=== PATIENT | female | born 1950 | race Asian ===

== ENCOUNTER 2021-09-13 20:34 | Emergency (ER) | payer OTHER ==
[~2021-09-13] VITALS: Ht 149.9 cm; Wt 44.5 kg
[2021-09-13 20:52] VITALS: BP 140/77
--- NOTE | 2021-09-13 21:01 | NUR ---
PT AMBULATED TO ER BED 06
--- NOTE | 2021-09-13 21:31 | NUR ---
71 YO/F BIB SELF W C/O R SIDED ABDOMINAL PAIN AND FLANK PAIN 10/10 BEGINNING THIS MORNING, CONSTANT, SHARP. +CHRONIC BACK PAIN. PT DENIES ANY URINARY BURNING, FREQUENCY, RETENTION OR OTHER SYMPTOMS. DENIES FEVERS, N/V/D, OR CONSTIPATION. PT DENIES TAKING ANYTHING FOR PAIN. BOWEL SOUNDS PRESENT, ABDOMEN SOFT AND TENDER ON R SIDE. PT AMBULATES W CANE PER BASELINE. PT PLACED IN GOWN, PT LAYING IN BED LOCKED IN LOWEST POSITION W X2 SIDERAILS UP FOR PT SAFETY. BREATHING EVEN AND UNLABORED. VSS. NAD NOTED, WILL CONTINUE TO MONITOR. PMH: ULCERS, CHRONIC BACK PAIN ALLERGIES: PENICILLINS, ACETAMINOPHEN, CODEINE
--- NOTE | 2021-09-13 21:32 | NUR ---
Dr. Klein examining patient.
[2021-09-13] MEDS ORDERED: KETOROLAC 30 MG/ML VIAL IVP ONE (21:35)
[2021-09-13] MEDS ORDERED: NACL 0.9% 1,000 ML IV SCH (21:35)
--- NOTE | 2021-09-13 22:04 | NUR ---
PT TAKEN TO CT
[2021-09-13 22:06] LABS: BASOPHILS % (AUTO) 0.5 % (0.0-2.0); EOSINOPHILS # (AUTO) 0.1 K/uL (0-0.4); EOSINOPHILS % (AUTO) 2.8 % (0.0-4.0); HEMATOCRIT 38.3 % (36-48); HEMOGLOBIN 12.6 g/dL (12.0-16.0); LYMPHOCYTES # (AUTO) 1.2 K/uL (2.5-16.5); LYMPHOCYTES % (AUTO) 26.3 % (20.5-51.1); MEAN CORPUSCULAR HEMOGLOBIN 31 pg (27-31); MEAN CORPUSCULAR HGB CONC 33 g/dL (33-37); MEAN CORPUSCULAR VOLUME 95.5 fL (80-94); MONOCYTES # (AUTO) 0.3 K/uL (0.8-1.0); MONOCYTES % (AUTO) 7.3 % (1.7-9.3); NEUTROPHILS % (AUTO) 63.1 % (42.2-75.2); PLATELET COUNT (AUTO) 209 K/uL (140-450); RED BLOOD CELL COUNT(AUTO) 4.01 MIL/uL (4.20-5.40); RED CELL DISTRIBUTION WIDTH 13.5 % (11.6-13.7); WHITE BLOOD COUNT (AUTO) 4.7 K/uL (4.8-10.8)
--- NOTE | 2021-09-13 22:20 | NUR ---
PT RETURN FROM CT TO ER BED 8
[2021-09-13 22:21] LABS: ALBUMIN 3.9 g/dL (3.4-5.0); ANION GAP 9.7 (8-16); ASPARTATE AMINOTRANSFERASE 22 U/L (15-37); CHLORIDE 107 mmol/L (98-107); CREATININE 0.6 mg/dL (0.6-1.3); GLUCOSE 100 mg/dL (74-106); LIPASE 144 U/L (73-393); POTASSIUM 3.7 mmol/L (3.5-5.1); SODIUM SERUM 142 mmol/L (136-145); TOTAL BILIRUBIN 0.4 mg/dL (0.0-1.0); UREA NITROGEN, BLOOD 20 mg/dL (7-18)
--- NOTE | 2021-09-13 22:26 | NUR ---
Dr. Alanis examining patient.
[2021-09-13 22:28] LABS: APPEARANCE,URINE CLEAR (CLEAR); BILIRUBIN,URINE NEGATIVE (NEGATIVE); BLOOD, URINE 2+ (NEGATIVE); COLOR,URINE YELLOW (YELLOW); LEUKOCYTE ESTERASE ,URINE NEGATIVE (NEGATIVE); NITRITE, URINE NEGATIVE (NEGATIVE); PH,URINE 5.5 (5.0-9.0); UGLUCOSE NEGATIVE (NEGATIVE)
[2021-09-13 22:41] LABS: RBC,URINE 0-5 /HPF (0-5); WBC,URINE 0-5 /HPF (0-5)
[2021-09-13] MEDS ORDERED: MORPHINE SULFATE 2 MG/ML SYR IVP ONE (23:00)
[2021-09-13] MEDS ORDERED: ONDANSETRON 4 MG/2 ML VIAL IVP ONE (23:00)
[2021-09-13] MEDS ORDERED: IBUP-2213 PO (23:14)
[2021-09-13] MEDS ORDERED: CEPH-588 PO (23:14)
[2021-09-13] MEDS ORDERED: cefTRIAXone 1,000 MG VIAL ONE (23:43)
--- NOTE | 2021-09-13 23:56 | NUR ---
PT REPORTS ALLERGY TO MORPHINE, ONGOING VOMITING. PT REFUSED MORPHINE. REPORTS ONGOING PAIN.
--- NOTE | 2021-09-14 00:36 | NUR ---
pt ambulated to bathroom w steady gait using a cane.
[2021-09-14] MEDS ORDERED: KETOROLAC 30 MG/ML VIAL IVP ONE (00:45)
--- NOTE | 2021-09-14 01:12 | NUR ---
PT APPEARS TO BE RESTING W EYES CLOSED, BLANKET ON. BED LOCKED IN LOWEST POSITION. HOB SLIGHTLY ELEVATED. BREATHING EVEN AND UNLABORED. VSS ON MONITOR. NAD NOTED, WILL CONTINUE TO MONITOR,.
[2021-09-14 01:23] VITALS: BP 106/53
--- NOTE | 2021-09-14 01:23 | NUR ---
Patient discharged with v/s stable. Written and verbal after care instructions given and explained. Patient alert, oriented and verbalized understanding of instructions. Ambulatory with steady gait. All questions addressed prior to discharge. ID band removed. Patient advised to follow up with PMD. Rx of KEFLEX, IBUPROFEN given. Patient educated on indication of medication including possible reaction and side effects. Opportunity to ask questions provided and answered.
== END 2021-09-14 01:23 | disposition home or self-care (01) ==
LOC: MED 20:34
DX: N12 Tubulo-interstitial nephritis, not specified as acute or chronic (principal); Z88.0 Allergy status to penicillin; Z88.6 Allergy status to analgesic agent; Z88.8 Allergy status to other drugs, medicaments and biological substances; Z88.5 Allergy status to narcotic agent; Z79.899 Other long term (current) drug therapy
CPT/HCPCS: 36415; 74176; 80053; 81001; 83690; 85025; 87086; 96361; 96365; 96375; 96376; 99284; J0696; J1885; J7030; J2270; J2405

== ENCOUNTER 2021-09-20 10:47 | Emergency (ER) | payer OTHER ==
[~2021-09-20] VITALS: Ht 149.9 cm; Wt 44.5 kg
[~2021-09-20 10:47] MED LIST: CEPH-588 PO; IBUP-2213 PO
[2021-09-20 11:04] VITALS: BP 123/68
--- NOTE | 2021-09-20 11:08 | NUR ---
PT AMB TO BED 11. Addendum: 09/20/21 at 1111 by [email or web address] HANDED ON URINE CUP.
--- NOTE | 2021-09-20 11:25 | NUR ---
71 y/o F BIB self from home c/o R flank pain and medication refill. Patient A&Ox4, ambulatory with cane, reports seen here 09/13 for pyelonephritis and states she completed day 8 of 10 ABX treatment of Keflex. Patient presents here requesting a 2 day refill of ABX due to running out of medication. Patient states she spoke with pharmacist who reports they are unable to refill her request. Patient presents to ER with R flank pain /, stabbing/constant, non-radiating pain. Pain worsens with ambulation and certain movements. Patient states Ibuprofen 500mg at 0900 without relief. Denies nausea, vomiting, diarrhea, fever, chills, dysuria, urinary symptoms. Last BM: today/normal. Pt also reports mid abdomen chronic to pt d/t "bleeding ulcers." Mid abdomen tender to palpation. Skin warm/pink/dry. Pt placed into a gown and urine collected. Bed locked in lowest position, side rails x 1. PMH: Denies Sx: denies Meds: keflex, ibuprofen A: PCN, acetaminopheine, codeine, morphine
--- NOTE | 2021-09-20 11:34 | NUR ---
Patient ambulated to restroom for urine sample
--- NOTE | 2021-09-20 11:43 | NUR ---
Dr. Chery is evaluating patient at bedside
[2021-09-20] MEDS ORDERED: ACET-8386 PO (12:01)
--- NOTE | 2021-09-20 12:12 | NUR ---
Patient discharged with v/s stable. Written and verbal after care instructions given and explained. Copy of lab results/scans from previous visit provided. Patient alert, oriented and verbalized understanding of instructions. Ambulatory with steady gait. All questions addressed prior to discharge. ID band removed. Patient advised to follow up with PMD. Rx of Hydrocodone/Acetaminophen given. Patient educated on indication of medication including possible reaction and side effects. Opportunity to ask questions provided and answered.
== END 2021-09-20 12:12 | disposition home or self-care (01) ==
LOC: MED 10:47
DX: M54.50 Low back pain, unspecified (principal); Z88.0 Allergy status to penicillin; Z88.5 Allergy status to narcotic agent; Z88.6 Allergy status to analgesic agent; Z79.899 Other long term (current) drug therapy
CPT/HCPCS: 99283